=== PATIENT | female | born 1950 | race African-American/Black ===

== ENCOUNTER 2021-01-17 08:18 | Inpatient (IN) | payer MEDICARE, OTHER ==
[2021-01-17] MEDS ORDERED: MECLIZINE 25 MG TAB PO STA (08:24)
--- NOTE | 2021-01-17 08:28 | ED ---
General Adult HPI - General Chief complaint: Dizziness Stated complaint: Weakness Time Seen by Provider: 01/17/21 08:20 Source: patient, RN notes reviewed, old records reviewed Mode of arrival: EMS Limitations: no limitations - History of Present Illness Initial comments: This is a 70-year-old female who presents emergency Department complaining of weakness. According to the patient she got up today and went went to walk and she was falling to the right and had to catch herself. Patient states she's noticed no focal deficit of any extremities overall she felt a little weaker. Patient states when she moves everything starts to spin. Patient denies headache patient denies near syncopal episode. Patient denies chest pain palpitations or cough. Patient denies any fever. Patient has any congestion recently. Patient denies any loss of taste and smell. Patient denies any vomiting or diarrhea but she does states with the spinning sensation she feels nauseated. - Related Data Home Medications Medication Instructions Recorded Confirmed Aspirin EC [Ecotrin Low Dose] 81 mg PO DAILY PRN 01/17/21 01/17/21 Cholecalciferol [Vitamin D3 (25 25 mcg PO DAILY 01/17/21 01/17/21 Mcg = 1000 Iu)] Famotidine 20 mg PO BID 01/17/21 01/17/21 Multivitamins, Thera [Multivitamin 1 tab PO DAILY 01/17/21 01/17/21 (formulary)] clonazePAM [KlonoPIN] 0.5 mg PO DAILY PRN 01/17/21 01/17/21 lisinopriL 40 mg PO DAILY 01/17/21 01/17/21 oxyCODONE-APAP 5-325MG [Percocet 1 tab PO QID PRN 01/17/21 01/17/21 5-325 mg] Allergies Allergy/AdvReac Type Severity Reaction Status Date / Time No Known Allergies Allergy Verified 01/17/21 09:25 Review of Systems ROS Statement: Those systems with pertinent positive or pertinent negative responses have been documented in the HPI. ROS Other: All systems not noted in ROS Statement are negative. Past Medical History Past Medical History: Hypertension History of Any Multi-Drug Resistant Organisms: None Reported Past Surgical History: Hysterectomy Past Psychological History: No Psychological Hx Reported Smoking Status: Former smoker Past Alcohol Use History: None Reported Past Drug Use History: None Reported General Exam - General Exam Comments Initial Comments: GENERAL: Patient is well-developed and well-nourished. Patient is nontoxic and well- hydrated and is in mild distress. ENT: Neck is soft and supple. No significant lymphadenopathy is noted. Oropharynx is clear. Moist mucous membranes. Neck has full range of motion without eliciting any pain. EYES: The sclera were anicteric and conjunctiva were pink and moist. Extraocular movements were intact and pupils were equal round and reactive to light. Eyelids were unremarkable. PULMONARY: Unlabored respirations. Good breath sounds bilaterally. No audible rales rhonchi or wheezing was noted. CARDIOVASCULAR: There is a regular rate and rhythm without any murmurs gallops or rubs. ABDOMEN: Soft and nontender with normal bowel sounds. SKIN: Skin is clear with no lesions or rashes and otherwise unremarkable. NEUROLOGIC: Patient is alert and oriented x3. Cranial nerves II through XII are grossly intact. Motor and sensory are also intact. Normal speech, volume and content. Symmetrical smile. Cerebellar testing finger to nose is normal bilaterally. Patient moved her head around and became much more dizzy and moving her from the gurney to the stretcher patient was extremely dizzy. MUSCULOSKELETAL: Normal extremities with adequate strength and full range of motion. No lower extremity swelling or edema. No calf tenderness. LYMPHATICS: No significant lymphadenopathy is noted PSYCHIATRIC: Normal psychiatric evaluation. Limitations: no limitations Course Vital Signs 01/17/21 01/17/21 08:19 09:43 Temperature 98.2 F Pulse Rate 55 L 54 L Respiratory 18 18 Rate Blood Pressure 189/85 161/74 O2 Sat by Pulse 100 100 Oximetry Medical Decision Making - Medical Decision Making EKG shows sinus bradycardia 56 bpm [place] interval is 128 QRS is 90 QT interval 414 QTC is 399. Patient's EKG shows no ST segment elevation or depression. CT of the brain shows no acute abnormality. Patient was unable to get out of bed because she felt she was falling to her right. Patient did receive Antivert but it did not appear to help her. I spoke with some physicians agreed to admit the patient admitted the patient I consult the neurology continue Antivert. - Lab Data Result diagrams: 01/17/21 08:36 01/17/21 08:36 Lab Results 01/17/21 01/17/21 01/17/21 Range/Units 08:36 08:36 08:36 WBC 6.6 (3.8-10.6) k/uL RBC 5.19 (3.80-5.40) m/uL Hgb 12.2 (11.4-16.0) gm/dL Hct 38.9 (34.0-46.0) % MCV 74.9 L (80.0-100.0) fL MCH 23.6 L (25.0-35.0) pg MCHC 31.5 (31.0-37.0) g/dL RDW 15.1 (11.5-15.5) % Plt Count 266 (150-450) k/uL MPV 8.6 Neutrophils % 71 % Lymphocytes % 20 % Monocytes % 5 % Eosinophils % 2 % Basophils % 0 % Neutrophils # 4.7 (1.3-7.7) k/uL Lymphocytes # 1.4 (1.0-4.8) k/uL Monocytes # 0.3 (0-1.0) k/uL Eosinophils # 0.1 (0-0.7) k/uL Basophils # 0.0 (0-0.2) k/uL Microcytosis Slight PT 9.7 (9.0-12.0) sec INR 0.9 (<1.2) APTT 23.6 (22.0-30.0) sec Sodium 139 (137-145) mmol/L Potassium 3.9 (3.5-5.1) mmol/L Chloride 109 H (98-107) mmol/L Carbon Dioxide 22 (22-30) mmol/L Anion Gap 8 mmol/L BUN 23 H (7-17) mg/dL Creatinine 1.04 (0.52-1.04) mg/dL Est GFR (CKD-EPI)AfAm 64 (>60 ml/min/1.73 sqM) Est GFR (CKD-EPI)NonAf 55 (>60 ml/min/1.73 sqM) Glucose 115 H (74-99) mg/dL Calcium 10.5 H (8.4-10.2) mg/dL Magnesium 2.0 (1.6-2.3) mg/dL Total Bilirubin 0.7 (0.2-1.3) mg/dL AST 24 (14-36) U/L ALT 21 (4-34) U/L Alkaline Phosphatase 102 (38-126) U/L Troponin I (0.000-0.034) ng/mL Total Protein 6.7 (6.3-8.2) g/dL Albumin 3.5 (3.5-5.0) g/dL Urine Color Urine Appearance (Clear) Urine pH (5.0-8.0) Ur Specific [place] (1.001-1.035) Urine Protein (Negative) Urine Glucose (UA) (Negative) Urine Ketones (Negative) Urine Blood (Negative) Urine Nitrite (Negative) Urine Bilirubin (Negative) Urine Urobilinogen (<2.0) mg/dL Ur Leukocyte Esterase (Negative) 01/17/21 01/17/21 Range/Units 08:36 08:36 WBC (3.8-10.6) k/uL RBC (3.80-5.40) m/uL Hgb (11.4-16.0) gm/dL Hct (34.0-46.0) % MCV (80.0-100.0) fL MCH (25.0-35.0) pg MCHC (31.0-37.0) g/dL RDW (11.5-15.5) % Plt Count (150-450) k/uL MPV Neutrophils % % Lymphocytes % % Monocytes % % Eosinophils % % Basophils % % Neutrophils # (1.3-7.7) k/uL Lymphocytes # (1.0-4.8) k/uL Monocytes # (0-1.0) k/uL Eosinophils # (0-0.7) k/uL Basophils # (0-0.2) k/uL Microcytosis PT (9.0-12.0) sec INR (<1.2) APTT (22.0-30.0) sec Sodium (137-145) mmol/L Potassium (3.5-5.1) mmol/L Chloride (98-107) mmol/L Carbon Dioxide (22-30) mmol/L Anion Gap mmol/L BUN (7-17) mg/dL Creatinine (0.52-1.04) mg/dL Est GFR (CKD-EPI)AfAm (>60 ml/min/1.73 sqM) Est GFR (CKD-EPI)NonAf (>60 ml/min/1.73 sqM) Glucose (74-99) mg/dL Calcium (8.4-10.2) mg/dL Magnesium (1.6-2.3) mg/dL Total Bilirubin (0.2-1.3) mg/dL AST (14-36) U/L ALT (4-34) U/L Alkaline Phosphatase (38-126) U/L Troponin I <0.012 (0.000-0.034) ng/mL Total Protein (6.3-8.2) g/dL Albumin (3.5-5.0) g/dL Urine Color Light Yellow Urine Appearance Clear (Clear) Urine pH 5.5 (5.0-8.0) Ur Specific [place] 1.013 (1.001-1.035) Urine Protein Trace H (Negative) Urine Glucose (UA) Negative (Negative) Urine Ketones Negative (Negative) Urine Blood Negative (Negative) Urine Nitrite Negative (Negative) Urine Bilirubin Negative (Negative) Urine Urobilinogen <2.0 (<2.0) mg/dL Ur Leukocyte Esterase Negative (Negative) Disposition Clinical Impression: Vertigo Disposition: ADMITTED IP TO THIS HOSP Referrals: Nonstaff,Physician [Primary Care Provider] - 1-2 days Time of Disposition: 10:57
[2021-01-17 09:15] LABS: INR 0.9 (<1.2); Partial Thromboplastin Time 23.6 sec (22.0-30.0); Prothrombin Time 9.7 sec (9.0-12.0)
[2021-01-17 09:25] LABS: Albumin 3.5 g/dL (3.5-5.0); Calcium 10.5 mg/dL (8.4-10.2); Potassium 3.9 mmol/L (3.5-5.1); Total Bilirubin 0.7 mg/dL (0.2-1.3); Total Protein 6.7 g/dL (6.3-8.2)
--- NOTE | 2021-01-17 09:26 | XR ---
EXAMINATION TYPE: XR chest 2V DATE OF EXAM: 01/17/2021 COMPARISON: Chest x-ray October 17, 2015 HISTORY: Chest pain. TECHNIQUE: Frontal and lateral views of the chest are obtained. FINDINGS: There is mild chronic parenchymal change without suspicious focal air space opacity, pleur al effusion, or pneumothorax seen. Elevation and eventration left hemidiaphragm is noted. The cardiac silhouette size is stable and enlarged. The osseous structures are intact. IMPRESSION: Chronic changes and cardiomegaly without acute pulmonary process.
--- NOTE | 2021-01-17 09:30 | CT ---
EXAMINATION TYPE: CT brain wo con DATE OF EXAM: 01/17/2021 HISTORY: weakness, dizziness CT DLP: 1135.4 mGycm. Automated Exposure Control for Dose Reduction was Utilized. TECHNIQUE: CT scan of the head is performed without contrast. COMPARISON: None. FINDINGS: There is no acute intracranial hemorrhage or midline shift identified. There is mild diff use ventricular and sulcal prominence consistent with diffuse age-related cerebral atrophy. There is mild low-attenuation in the periventricular white matter consistent with chronic small vessel ischem ic change. There is 2.2 cm mucous retention cyst or polyp in the posterior left maxillary sinus. Isaura casey of paranasal sinuses are clear. Globes are intact bilaterally. Slight prominence of the adenoid tonsils and the posterior nasal pharynx incidentally noted. IMPRESSION: No acute intracranial hemorrhage or midline shift. There is mild diffuse age-related ce rebral atrophy and chronic small vessel ischemic change noted.
[2021-01-17 09:45] LABS: Basophils % (A) 0 %; Eosinophils # (A) 0.1 k/uL (0-0.7); Eosinophils % (A) 2 %; HCT 38.9 % (34.0-46.0); HGB 12.2 gm/dL (11.4-16.0); Lymphocytes # (A) 1.4 k/uL (1.0-4.8); Lymphocytes % (A) 20 %; MCH 23.6 pg (25.0-35.0); MCHC 31.5 g/dL (31.0-37.0); MCV 74.9 fL (80.0-100.0); Mean Platelet Volume 8.6; Microcytosis Slight; Monocytes # (A) 0.3 k/uL (0-1.0); Monocytes % (A) 5 %; Neutrophils # (A) 4.7 k/uL (1.3-7.7); Neutrophils % (A) 71 %; Platelet Count 266 k/uL (150-450); RBC 5.19 m/uL (3.80-5.40); RDW 15.1 % (11.5-15.5); WBC 6.6 k/uL (3.8-10.6)
[2021-01-17 09:58] LABS: Appearance,Urine Clear (Clear); Bilirubin,Urine Negative (Negative); Blood,Urine Negative (Negative); Color,Urine Light Yellow; Glucose,Urine (UA) Negative (Negative); Ketones,Urine Negative (Negative); Leukocyte Esterase,Urine Negative (Negative); Nitrite,Urine Negative (Negative); PH, Urine 5.5 (5.0-8.0); Protein,Urine Trace (Negative); Specific Gravity,Urine 1.013 (1.001-1.035); Urobilinogen,Urine <2.0 mg/dL (<2.0)
[2021-01-17] MEDS ORDERED: ACETAMINOPHEN TAB 325 MG TAB PO STA (10:15)
[2021-01-17] MEDS ORDERED: SODIUM CHLORIDE 0.9% 1,000 ML IV ONE (10:57)
[2021-01-17] MEDS ORDERED: MECLIZINE 25 MG TAB PO PRN (10:58)
--- NOTE | 2021-01-17 13:24 | P.CNNES ---
History of Present Illness Consult date: 01/17/21 Requesting physician: Zaheer Reilly Reason for Consult: vertigo History of Present Illness: This is a 70-year-old woman with medical history of hemorrhagic stroke in 2013 (without any intervention) and uncontrolled hypertension, cervical and lumbar fusion who presented emergency department on 01/17/2021 generalized weakness and dizziness. She is accompanied with her daughter was at bedside. According to the patient she woke up at 3 PM and trying to get out of bed and she felt like her whole body is weak and she basically bounced back to bed and she is felt nauseous and been feeling dizzy and she feels the room is spinning around her. She said that that she was last normal at that 10 PM yesterday but today she just feels her whole body was weak and denies any focal weakness. She denies any ringing of the ears or hearing loss. Denies any vomiting. Feels her vision is blurry. Denies of any recent fever or sickness recently. Denies of any numbness. Patient stated she is not on any antiplatelets or anticoagulation. She feels like she is leaning towards the right side. Note patient stated that her blood pressure is uncontrolled at home and it's usually 180s over 90s. Patient denies of tobacco use, alcohol use or any illicit drug use. She said that regarding her hemorrhagic stroke in 2013 she said she was a hospitalized at [facility] over at [place]. She said that she had weakness over the right side at that time but she had to have therapy and that improved she had any intervention for the bleed and she could not tell me what was the cause but I assume possibly uncontrolled hypertension but not for sure. She denies of any trauma that caused the bleed to her knowledge. Some of the workup in the hospital consisted of: Initial vital signs was blood pressure 189/85, heart rate 55, respiratory of 18, temperature of 98.2 Fahrenheit and pulse ox of 100% at room air. White blood cell was 6.6 thousand. Sodium is 139, creatinine 1.04, calcium 7.5, magnesium 2.0. Urinalysis is negative for urinary tract infection. CT of the head is reported as no acute intracranial hemorrhage or midline shift. There is mild diffuse age-related cerebral atrophy and chronic small vessel ischemic change noted. I personally reviewed the CT of the head there is no acute or subacute ischemia or any intraparenchymal hemorrhage that was noticeable left. Review of Systems Review of system: The 12 point system was reviewed and apparent positive and negative per HPI. Past Medical History Past Medical History: Hypertension History of Any Multi-Drug Resistant Organisms: None Reported Past Surgical History: Hysterectomy Past Psychological History: No Psychological Hx Reported Smoking Status: Former smoker Past Alcohol Use History: None Reported Past Drug Use History: None Reported Medications and Allergies Home Medications Medication Instructions Recorded Confirmed Type Aspirin EC [Ecotrin Low Dose] 81 mg PO DAILY PRN 01/17/21 01/17/21 History Cholecalciferol [Vitamin D3 (25 25 mcg PO DAILY 01/17/21 01/17/21 History Mcg = 1000 Iu)] Famotidine 20 mg PO BID 01/17/21 01/17/21 History Multivitamins, Thera [Multivitamin 1 tab PO DAILY 01/17/21 01/17/21 History (formulary)] clonazePAM [KlonoPIN] 0.5 mg PO DAILY PRN 01/17/21 01/17/21 History lisinopriL 40 mg PO DAILY 01/17/21 01/17/21 History oxyCODONE-APAP 5-325MG [Percocet 1 tab PO QID PRN 01/17/21 01/17/21 History 5-325 mg] Allergies Allergy/AdvReac Type Severity Reaction Status Date / Time No Known Allergies Allergy Verified 01/17/21 09:25 Physical Examination - Vital Signs Vital Signs: Vital Signs Temp Pulse Resp BP Pulse Ox 01/17/21 09:43 54 L 18 161/74 100 01/17/21 08:19 98.2 F 55 L 18 189/85 100 Intake and Output 01/16/21 01/17/21 01/17/21 22:59 06:59 14:59 Other: Weight 89.358 kg GENERAL: The patient is lying in bed and is not in acute distress. CHEST: The heart rate is regular rate rhythm. No murmurs to auscultation. LUNG: Clear to auscultation bilaterally no wheezing noted throughout. Not labored breathing. ABDOMEN/GI: Bowel sounds present in all 4 quadrants. No tenderness to palpation throughout. NEUROLOGICAL: Higher mental function: The patient is awake, alert, oriented to self, place and time. Patient is following commands. No aphasia and no neglect. Cranial nerves: The pupils are round, equal and reactive to light and accommodation. Visual sánchez are full to confrontation throughout. Extraocular movement is intact no nystagmus is noted. Facial sensation is normal to touch throughout. The facial strength is normal throughout. Hearing is mildly decreased bilaterally to hand rub. Tongue is midline and moved [id number] without any difficulty. No dysarthria is noted. Shoulder shrug is normal bilaterally. Motor: Gait is deferred. The strength is left forearm extension is 4+ but was limited because of pain due to her IV line. Otherwise 5 over 5 throughout. Normal tone and bulk. Cerebellum: Normal finger to nose heel to flores bilaterally. Sensation: Sensation is normal to touch throughout. Reflexes (right/left): 2+ throughout except right patellar is 1+. Plantars are downgoing bilaterally. Results - Laboratory Findings CBC and BMP: 01/17/21 08:36 01/17/21 08:36 Abnormal Lab Findings: Abnormal Labs 01/17/21 01/17/21 01/17/21 08:36 08:36 08:36 MCV 74.9 L MCH 23.6 L Chloride 109 H BUN 23 H Glucose 115 H Calcium 10.5 H Urine Protein Trace H Assessment and Plan Assessment: Vertigo, nausea and generalized weakness; Rule out stroke vs peripheral causes Uncontrolled hypertension History of hemorrhagic stroke in 2013 without any intervention (patient could not give more details other than possibly over the right side of brain) History of hypertension and per patient the her blood pressure at home is usually 180/90 History of cervical fusion History of lumbar fusion Plan: Patient the was given meclizine 25 mg once in the ED then was started on 25 mg 1 tablet 3 times a day. I ordered MRI of the brain, CTA head and neck and 2-D echo. Also ordered the lipid panel, TSH level and HbA1c. Consulted the physical therapy and occupation therapy If the patient does have a stroke all start the patient on Lipitor and antiplatelet (patient agrees to hold off on any medication until stroke is confirmed). Every 4 hours neuro checks She was counseled on the better management of her hypertension at home. We'll defer the rest of the medical management to the primary team Plan was discussed with the patient and her daughter who was at bedside. Thank you for the consultation. Larry Hansen M.D. Neuro-hospitalist Time with Patient: Greater than 30
--- NOTE | 2021-01-17 13:47 | P.HPIM ---
History of Present Illness H&P Date: 01/17/21 Chief Complaint: dizziness 70-year-old woman with medical history of hemorrhagic stroke in 2014, uncontrolled hypertension, cervical and lumbar fusion who presented emergency department on 01/17/2021 with generalized weakness and dizziness. According to the patient she woke up at 3 PM and trying to get out of bed and she felt like her whole body is weak, and had extreme dizziness and vertigo sensation, felt like everything was spinning around her. Patient denies any focal weakness or numbness. She denies any ringing of the ears or hearing loss. Denies any vomiting. Had blurred and double vision in both eyes. Denies of any recent fever or sickness recently. In the emergency department initial vital signs was blood pressure 189/85, heart rate 55, respiratory of 18, temperature of 98.2 Fahrenheit and pulse ox of 100% at room air. Labs all look okay. Urinalysis is negative for urinary tract infection. CT of the head is reported as no acute intracranial hemorrhage or midline shift. Review of Systems Complete review of system performed, pertinent positives as per HPI, otherwise negative Past Medical History Past Medical History: Hypertension History of Any Multi-Drug Resistant Organisms: None Reported Past Surgical History: Hysterectomy Past Psychological History: No Psychological Hx Reported Smoking Status: Former smoker Past Alcohol Use History: None Reported Past Drug Use History: None Reported Medications and Allergies Home Medications Medication Instructions Recorded Confirmed Type Aspirin EC [Ecotrin Low Dose] 81 mg PO DAILY PRN 01/17/21 01/17/21 History Cholecalciferol [Vitamin D3 (25 25 mcg PO DAILY 01/17/21 01/17/21 History Mcg = 1000 Iu)] Famotidine 20 mg PO BID 01/17/21 01/17/21 History Multivitamins, Thera [Multivitamin 1 tab PO DAILY 01/17/21 01/17/21 History (formulary)] clonazePAM [KlonoPIN] 0.5 mg PO DAILY PRN 01/17/21 01/17/21 History lisinopriL 40 mg PO DAILY 01/17/21 01/17/21 History oxyCODONE-APAP 5-325MG [Percocet 1 tab PO QID PRN 01/17/21 01/17/21 History 5-325 mg] Allergies Allergy/AdvReac Type Severity Reaction Status Date / Time No Known Allergies Allergy Verified 01/17/21 09:25 Physical Exam Vitals: Vital Signs Temp Pulse Resp BP Pulse Ox 01/17/21 09:43 54 L 18 161/74 100 01/17/21 08:19 98.2 F 55 L 18 189/85 100 Intake and Output 01/16/21 01/17/21 01/17/21 22:59 06:59 14:59 Other: Weight 89.358 kg Constitutional: No acute distress, conversant, pleasant Eyes:Anicteric sclerae, moist conjunctiva, no lid-lag, PERRLA, ENMT: Oropharynx clear, no erythema, exudates Neck: Supple, FROM, no masses, or JVD, No carotid bruits, No thyromegaly Lungs: Clear to auscultation, Clear to percussion, Normal respiratory effort, no accessory muscle use Cardiovascular: Heart regular in rate and rhythm, No murmurs, gallops, or rubs, No peripheral edema Abdominal: Soft, Nontender, no guarding, rebound or rigidity, Normoactive bowel sounds, No hepatomegaly, No splenomegaly, No palpable mass Skin: Normal temperature, tone, texture, turgor, no induration, No subcutaneous nodules, No rash, lesions, No ulcers Extremities: No digital cyanosis, No clubbing, Pedal pulses intact and symmetrical, Radial pulses intact and symmetrical, No calf tenderness Psychiatric: Alert and oriented to person, place and time, appropriate affect, intact judgement Neuro: Muscles Strength 5/5 in all 4 extremities, Sensation to light touch grossly present throughout, Cranial nerves II-XII grossly intact, no focal sensory deficits Results CBC & Chem 7: 01/17/21 08:36 01/17/21 08:36 Labs: Abnormal Lab Results - Last 24 Hours (Table) 01/17/21 01/17/21 01/17/21 Range/Units 08:36 08:36 08:36 MCV 74.9 L (80.0-100.0) fL MCH 23.6 L (25.0-35.0) pg Chloride 109 H (98-107) mmol/L BUN 23 H (7-17) mg/dL Glucose 115 H (74-99) mg/dL Calcium 10.5 H (8.4-10.2) mg/dL Urine Protein Trace H (Negative) Assessment and Plan Plan: Acute vertigo, rule out CVA Seen by neurology, stroke workup with MRI brain, 2-D echo, CTA head and neck ordered. Send A1c, lipid profile PT and OT Monitor on telemetry Uncontrolled hypertension permissive hypertension for now until she is ruled out Chronic back and neck pain She is status post cervical and lumbar fusion. Admit to inpatient, expected length of stay >2 midnights
[2021-01-17] MEDS ORDERED: NALOXONE 0.4 MG/ML 1 ML VIAL IV PRN (14:05)
--- NOTE | 2021-01-17 15:27 | CT ---
EXAMINATION TYPE: CT angio head neck DATE OF EXAM: 01/17/2021 HISTORY: cva acute. Weakness and dizziness. COMPARISON: None. CT DLP: 522.2 mGycm. Automated Exposure Control for Dose Reduction was Utilized. TECHNIQUE: CTA scan of the head and neck are performed with IV Contrast, patient injected with 65cc mL of Isovue 370, axial images are obtained, coronal and sagittal reformatted images are reviewed. 3D reconstructed images are created on an independent workstation and reviewed. FINDINGS: Carotid/Vascular Structures: There is bovine type aortic arch. No significant plaque or stenosis in t he arch or great vessels. No significant plaque or stenosis in the common or internal carotid arterie s bilaterally including at the level of the bilateral carotid bulbs. Patent external carotid arteries bilaterally without significant plaque or stenosis. Patent codominant vertebral arteries to basilar junction. No significant focal stenosis or aneurysm i n the posterior circulation. There are hypoplastic bilateral posterior communicating arteries. Small caliber but patent anterior communicating artery. No significant focal stenosis or aneurysm in the anterior circulation. Other: Incidental extra-axial 2.3 x 1.0 cm enhancing mass right frontal lobe axial image 29 consisten t with meningioma less well-seen on noncontrast CT gas is isodense. There is second 1.1 cm enhancing meningioma axial image 36 in the anterior left frontal lobe. There is 2.2 cm mucous retention cyst or polyp in the left maxillary sinus posterior aspect. Heterogeneous enlarged thyroid with left-sided substernal extension consistent with goiter. IMPRESSION: No significant stenosis in common or internal carotid arteries. No significant stenosis or aneurysm at the level of the [place]. NASCET criteria was used in interpretation of this exam?
--- NOTE | 2021-01-17 17:40 | ECHOF ---
Referral Reason:stroke MEASUREMENTS -------- HEIGHT: 157.5 cm WEIGHT: 77.1 kg BP: RVIDd: 2.8 cm (< 3.3) IVSd: 1.4 cm (0.6 - 1.1) LVIDd: 4.7 cm (3.9 - 5.3) LVPWd: 1.5 cm (0.6 - 1.1) IVSs: 1.6 cm LVIDs: 3.4 cm LVPWs: 1.5 cm LAESV Index (A-L): 34.92 ml/m Ao Diam: 3.4 cm (2.0 - 3.7) AV Cusp: 2.4 cm (1.5 - 2.6) LA Diam: 3.4 cm (2.7 - 3.8) MV EXCURSION: 15.965 mm (> 18.000) MV EF SLOPE: 48 mm/s (70 - 150) EPSS: 0.8 cm MV E Slade: 0.41 m/s MV DecT: 206 ms MV A [place]: 0.88 m/s MV E/A Ratio: 0.46 AR PHT: 892 ms RAP: 5.00 mmHg RVSP: 23.88 mmHg FINDINGS -------- Sinus rhythm. This was a technically adequate study. The left ventricular size is normal. There is moderate concentric left ventricular hypertrophy. O verall left ventricular systolic function is normal with, an EF between 55 - 60 %. The right ventricle is normal in size. LA is moderately dilated 34-39 ml/m2 The right atrial size is normal. There is mild aortic valve sclerosis. There is mild aortic regurgitation. The mitral valve is normal. Mild mitral regurgitation is present. The tricuspid valve appears structurally normal. Mild tricuspid regurgitation present. Right vent ricular systolic pressure is normal at < 35 mmHg. There is no pulmonic regurgitation present. The aortic root size is normal. There is a small, generalized pericardial effusion present. CONCLUSIONS -------- 1. There is moderate concentric left ventricular hypertrophy. 2. Overall left ventricular systolic function is normal with, an EF between 55 - 60 %. 3. LA is moderately dilated 34-39 ml/m2 4. There is mild aortic valve sclerosis. 5. There is mild aortic regurgitation. 6. Mild mitral regurgitation is present. 7. Mild tricuspid regurgitation present. 8. There is a small, generalized pericardial effusion present. AUTOMOTIVE QUALITY MANAGER: Veronica Armas RDCS
[2021-01-17 19:37] LABS: Chol/HDL Ratio 2.97 Ratio; LDL Cholesterol,Calculated 108.5 mg/dL (0.0-131.0); VLDL Calculation 12.32 mg/dL (5.00-40.00)
[2021-01-17] MEDS ORDERED: clonazePAM 0.5 MG TAB PO PRN (23:38)
[2021-01-17] MEDS ORDERED: ASPIRIN 81 MG PO PRN (23:39)
[2021-01-18] MEDS ORDERED: ALPRAZolam 0.5 MG TAB PO STA ×2 (08:27→10:32)
[2021-01-18] MEDS: Acetaminophen-Codeine 300-30mg TAB PO PRN ×2 (08:56→16:27)
[2021-01-18] MEDS ORDERED: FAMOTIDINE 20 MG TAB PO SCH (09:00)
[2021-01-18 10:39] LABS: Basophils # (A) 0.03 X 10*3/uL (0.00-0.10); Basophils % (A) 0.5 %; Eosinophils # (A) 0.16 X 10*3/uL (0.04-0.35); Eosinophils % (A) 2.5 %; HCT 35.6 % (37.2-46.3); HGB 10.8 g/dL (12.0-15.0); Lymphocytes % (A) 23.6 %; MCHC 30.3 g/dL (32.0-37.0); MCV 75.9 fL (80.0-97.0); Mean Platelet Volume 11.2 fL (9.5-12.2); Monocytes # (A) 0.52 X 10*3/uL (0.20-1.00); Monocytes % (A) 8.2 %; Neutrophils # (A) 4.13 X 10*3/uL (1.80-7.70); Neutrophils % (A) 64.9 %; Platelet Count 284 X 10*3/uL (140-440); RBC 4.69 X 10*6/uL (4.10-5.20); RDW 15.9 % (11.5-14.5); WBC 6.36 X 10*3/uL (4.50-10.00)
[2021-01-18 11:19] LABS: African American GFR (CKD) 59.3 (60.0-200.0); Albumin 3.5 g/dL (3.8-4.9); Albumin/Globulin Ratio 1.57 (1.60-3.17); BUN/Creat Ratio 17.36 Ratio (12.00-20.00); Blood Urea Nitrogen 19.1 mg/dL (9.0-27.0); Carbon Dioxide 23.8 mmol/L (21.6-31.8); Globulin 2.2 g/dL (1.6-3.3); Non-African American GFR(CKD) 51.2 (60.0-200.0); Phosphorus 3.2 mg/dL (2.4-5.1); Potassium 4.4 mmol/L (3.5-5.5); Total Bilirubin 0.3 mg/dL (0.30-1.20); Total Protein 5.8 g/dL (6.2-8.2)
--- NOTE | 2021-01-18 12:11 | P.PN ---
Subjective Progress Note Date: 01/18/21 The patient is seen at bedside and feels her dizziness is improving but is not back to baseline. Denies of any new neurological problems. Objective - Vital Signs Vital signs: Vital Signs Temp 98.2 F 01/18/21 07:00 Pulse 60 01/18/21 08:00 Resp 14 01/18/21 08:00 BP 164/81 01/18/21 07:00 Pulse Ox 96 01/18/21 07:00 Intake & Output 01/17/21 01/18/21 01/18/21 18:59 06:59 18:59 Intake Total 118 Balance 118 Weight 89.358 kg Intake: Oral 118 Other: Voiding Method Bedpan Bedpan # Voids 1 - Exam GENERAL: The patient is lying in bed and is not in acute distress. NEUROLOGICAL: Higher mental function: The patient is awake, alert, oriented to self, place and time. Patient is following commands. No aphasia and no neglect. Cranial nerves: The pupils are round, equal and reactive to light and accommodation. Visual sánchez are full to confrontation throughout. Extraocular movement is intact no nystagmus is noted. Facial sensation is normal to touch throughout. The facial strength is normal throughout. Hearing is mildly decreased bilaterally to hand rub. Tongue is midline and moved [id number] without any difficulty. No dysarthria is noted. Shoulder shrug is normal bilaterally. Motor: Gait is deferred. The strength is left forearm extension is 4+ but was limited because of pain due to her IV line. Otherwise 5 over 5 throughout. Normal tone and bulk. Cerebellum: Normal finger to nose heel to flores bilaterally. Sensation: Sensation is normal to touch throughout. Reflexes (right/left): 2+ throughout except right patellar is 1+. Plantars are downgoing bilaterally. WORK-UP: Urinalysis is negative for urinary tract infection. CT of the head is reported as no acute intracranial hemorrhage or midline shift. There is mild diffuse age-related cerebral atrophy and chronic small vessel ischemic change noted. I personally reviewed the CT of the head there is no acute or subacute ischemia or any intraparenchymal hemorrhage that was noticeable left. CT angiography of the head and neck is reported as negative. 2-D echo was reported as ejection fraction of 55-60%. Moderate concentric left ventricle hypertrophy. Left atrium is moderately dilated. Panel is triglyceride of 61, cholesterol 182, LDLs 108 and HDL of 61 TSH is 1.58. Hemoglobin A1c 6.2. - Labs CBC & Chem 7: 01/18/21 07:54 01/18/21 07:54 Labs: Abnormal Lab Results - Last 24 Hours (Table) 01/17/21 01/17/21 01/18/21 Range/Units 08:36 08:36 07:54 Hgb 10.8 L (12.0-15.0) g/dL Hct 35.6 L (37.2-46.3) % MCV 75.9 L (80.0-97.0) fL MCH 23.0 L (27.0-32.0) pg MCHC 30.3 L (32.0-37.0) g/dL RDW 15.9 H (11.5-14.5) % Est GFR (CKD-EPI)AfAm (60.0-200.0) Est GFR (CKD-EPI)NonAf (60.0-200.0) Hemoglobin A1c 6.2 H (4.0-6.0) % Total Protein (6.2-8.2) g/dL Albumin (3.8-4.9) g/dL Albumin/Globulin Ratio (1.60-3.17) g/dL HDL Cholesterol 61.20 H (40.00-60.00) mg/dL 01/18/21 Range/Units 07:54 Hgb (12.0-15.0) g/dL Hct (37.2-46.3) % MCV (80.0-97.0) fL MCH (27.0-32.0) pg MCHC (32.0-37.0) g/dL RDW (11.5-14.5) % Est GFR (CKD-EPI)AfAm 59.3 L (60.0-200.0) Est GFR (CKD-EPI)NonAf 51.2 L (60.0-200.0) Hemoglobin A1c (4.0-6.0) % Total Protein 5.8 L (6.2-8.2) g/dL Albumin 3.5 L (3.8-4.9) g/dL Albumin/Globulin Ratio 1.57 L (1.60-3.17) g/dL HDL Cholesterol (40.00-60.00) mg/dL Assessment and Plan Assessment: Vertigo, nausea and generalized weakness; Rule out stroke vs peripheral causes Uncontrolled hypertension History of hemorrhagic stroke in 2013 without any intervention (patient could not give more details other than possibly over the right side of brain) History of hypertension and per patient the her blood pressure at home is usually 180/90 History of cervical fusion History of lumbar fusion Plan: Patient the was given meclizine 25 mg once in the ED then was started on 25 mg 1 tablet 3 times a day. Pending MRI Brain. Consulted the physical therapy and occupation therapy If the patient does have a stroke all start the patient on Lipitor and antiplatelet (patient agrees to hold off on any medication until stroke is confirmed). Every 4 hours neuro checks She was counseled on the better management of her hypertension at home. We'll defer the rest of the medical management to the primary team Plan was discussed with the patient. If MRI Brain is negative for acute or subacute stroke then patient is clear from neurological perspective. Consider following-up with ENT if patient continues to have vestibular symptoms as outpatient. Larry Hansen M.D. Neuro-hospitalist Time with Patient: Less than 30
--- NOTE | 2021-01-18 12:58 | P.PN ---
Subjective Progress Note Date: 01/18/21 Principal diagnosis: Vertigo Patient is feeling better today in terms of the vertigo but she had a bad headache all last night and this morning. No new weakness or numbness. Objective - Vital Signs Vital signs: Vital Signs Temp 98.2 F 01/18/21 07:00 Pulse 60 01/18/21 08:00 Resp 14 01/18/21 08:00 BP 164/81 01/18/21 07:00 Pulse Ox 96 01/18/21 07:00 Intake & Output 01/17/21 01/18/21 01/18/21 18:59 06:59 18:59 Intake Total 118 Balance 118 Weight 89.358 kg Intake: Oral 118 Other: Voiding Method Bedpan Bedpan # Voids 1 - Exam Constitutional: No acute distress, conversant, pleasant Eyes:Anicteric sclerae, moist conjunctiva, no lid-lag, PERRLA, ENMT: Oropharynx clear, no erythema, exudates Neck: Supple, FROM, no masses, or JVD, No carotid bruits, No thyromegaly Lungs: Clear to auscultation, Clear to percussion, Normal respiratory effort, no accessory muscle use Cardiovascular: Heart regular in rate and rhythm, No murmurs, gallops, or rubs, No peripheral edema Abdominal: Soft, Nontender, no guarding, rebound or rigidity, Normoactive bowel sounds, No hepatomegaly, No splenomegaly, No palpable mass Skin: Normal temperature, tone, texture, turgor, no induration, No subcutaneous nodules, No rash, lesions, No ulcers Extremities: No digital cyanosis, No clubbing, Pedal pulses intact and symmetrical, Radial pulses intact and symmetrical, No calf tenderness Psychiatric: Alert and oriented to person, place and time, appropriate affect, intact judgement Neuro: Muscles Strength 5/5 in all 4 extremities, Sensation to light touch grossly present throughout, Cranial nerves II-XII grossly intact, no focal sensory deficits - Labs CBC & Chem 7: 01/18/21 07:54 01/18/21 07:54 Labs: Abnormal Lab Results - Last 24 Hours (Table) 01/17/21 01/17/21 01/18/21 Range/Units 08:36 08:36 07:54 Hgb 10.8 L (12.0-15.0) g/dL Hct 35.6 L (37.2-46.3) % MCV 75.9 L (80.0-97.0) fL MCH 23.0 L (27.0-32.0) pg MCHC 30.3 L (32.0-37.0) g/dL RDW 15.9 H (11.5-14.5) % Est GFR (CKD-EPI)AfAm (60.0-200.0) Est GFR (CKD-EPI)NonAf (60.0-200.0) Hemoglobin A1c 6.2 H (4.0-6.0) % Total Protein (6.2-8.2) g/dL Albumin (3.8-4.9) g/dL Albumin/Globulin Ratio (1.60-3.17) g/dL HDL Cholesterol 61.20 H (40.00-60.00) mg/dL 01/18/21 Range/Units 07:54 Hgb (12.0-15.0) g/dL Hct (37.2-46.3) % MCV (80.0-97.0) fL MCH (27.0-32.0) pg MCHC (32.0-37.0) g/dL RDW (11.5-14.5) % Est GFR (CKD-EPI)AfAm 59.3 L (60.0-200.0) Est GFR (CKD-EPI)NonAf 51.2 L (60.0-200.0) Hemoglobin A1c (4.0-6.0) % Total Protein 5.8 L (6.2-8.2) g/dL Albumin 3.5 L (3.8-4.9) g/dL Albumin/Globulin Ratio 1.57 L (1.60-3.17) g/dL HDL Cholesterol (40.00-60.00) mg/dL Assessment and Plan Plan: Acute vertigo, rule out CVA Seen by neurology, stroke workup with MRI brain, 2-D echo, CTA head and neck ordered. 2 d echo and CTA head and neck ok, waiting for MRI brain. Lipid sustainability manager reviewed. PT and OT Monitor on telemetry Prediabetes Her A1c is 6.2 Start metformin 500mg bid. Uncontrolled hypertension Restart lisinopril. Chronic back and neck pain She is status post cervical and lumbar fusion. Anticiptated discharge: 1-2 days. Dispo: Likely home
[2021-01-18] MEDS: lisinopriL 20 MG TAB PO SCH (14:01)
--- NOTE | 2021-01-18 14:23 | MR ---
EXAMINATION TYPE: MR brain wo con DATE OF EXAM: 01/18/2021 COMPARISON: CT brain from yesterday HISTORY: Dizziness, nausea, rule out stroke TECHNIQUE: Multiplanar, multisequence imaging of the brain and brainstem is performed without IV cont rast. FINDINGS: Diffusion weighted images demonstrate no evidence of a recent infarct or other diffusion abnormality. There is mild ventricular and sulcal prominence. Few small scattered foci of T2 hyperintensity throug hout the white matter bilaterally. Redemonstration of 2.3 x 1.3 cm extra-axial right frontal mass axi al image 19 and smaller 1.2 cm high more midline left frontal extra-axial mass axial image 23. Slight T1 hypointensity and T2 hyperintensity consistent with small meningiomas. Midline structures redemonstrate empty sella morphology. The craniocervical junction appears within normal limits. Normal vascular flow voids are present. There is persistent 2.3 cm mucous retention [address] or polyp in the posterior left maxillary sinus. No suspicious opacification of the mastoid air frank ls. IMPRESSION: No MRI evidence for recent infarct. Mild age-related cerebral atrophy and chronic small v essel ischemic changes redemonstrated. There are 2 small meningiomas again seen. Chronic left maxilla ry sinus disease.
[2021-01-19] MEDS: FAMOTIDINE 20 MG TAB PO SCH (08:15)
[2021-01-19] MEDS: lisinopriL 20 MG TAB PO SCH (08:15)
[2021-01-19] MEDS: hydrALAZINE HCL 25 MG TAB PO SCH ×2 (09:58→20:22)
[2021-01-19] MEDS ORDERED: ONDANSETRON 4 MG/2 ML VIAL IVP PRN (10:31)
[2021-01-19] MEDS ORDERED: SENNOSIDES 8.6 MG TAB PO PRN (10:33)
--- NOTE | 2021-01-19 10:43 | P.PN ---
Subjective Progress Note Date: 01/19/21 Principal diagnosis: Dizziness Patient seen and examined at bedside. She denies chest pain, shortness of breath, fever, or chills. Patient states that her dizziness is still present and she does get nauseated. However, since admitted to the hospital dizziness has improved. MRI of the brain was reviewed and there is no evidence for recent infarct. Mild age-related cerebral atrophy and chronic small vessel ischemic changes demonstrated. There are 2 small meningiomas again seen. Chronic left maxillary sinus disease. Objective - Vital Signs Vital signs: Vital Signs Temp 97.5 F L 01/19/21 07:00 Pulse 53 L 01/19/21 08:00 Resp 20 01/19/21 08:00 BP 179/82 01/19/21 07:00 Pulse Ox 97 01/19/21 07:00 Intake & Output 01/18/21 01/19/21 01/19/21 18:59 06:59 18:59 Intake Total 798 Balance 798 Intake: Oral 798 Other: Voiding Method Bedpan Bedpan Bedside Commode Bedpan # Voids 4 3 - Exam General: [non toxic], [no distress], [appears at stated age] Derm: [warm], [dry] Head: [atraumatic], [normocephalic], [symmetric] Eyes: [EOMI], [no lid lag], [anicteric sclera] Mouth: [no lip lesion], [mucus membranes moist] Cardiovascular: [Sinus bradycardia], [grade II murmur], [positive posterior tibial pulse bilateral], Lungs: [CTA bilateral], [no rhonchi, no rales] , [no accessory muscle use] Abdominal: [soft], [ nontender to palpation], [no guarding], [no appreciable organomegaly] Ext: [no gross muscle atrophy], [no edema], [no contractures] Neuro: [ CN II-XI grossly intact], [no focal neuro deficits] Psych: [Alert], [oriented], [appropriate affect] - Labs CBC & Chem 7: 01/18/21 07:54 01/18/21 07:54 Labs: Abnormal Lab Results - Last 24 Hours (Table) 01/18/21 01/18/21 Range/Units 07:54 07:54 Hgb 10.8 L (12.0-15.0) g/dL Hct 35.6 L (37.2-46.3) % MCV 75.9 L (80.0-97.0) fL MCH 23.0 L (27.0-32.0) pg MCHC 30.3 L (32.0-37.0) g/dL RDW 15.9 H (11.5-14.5) % Est GFR (CKD-EPI)AfAm 59.3 L (60.0-200.0) Est GFR (CKD-EPI)NonAf 51.2 L (60.0-200.0) Total Protein 5.8 L (6.2-8.2) g/dL Albumin 3.5 L (3.8-4.9) g/dL Albumin/Globulin Ratio 1.57 L (1.60-3.17) g/dL Assessment and Plan Assessment: 1. Dizziness likely due to vertigo secondary to chronic sinusitis Antibiotics and steroids will be provided today secondary to evidence of chronic sinusitis on MRI MRI reviewed and was negative for acute CVA Continue meclizine Neurology recommendations appreciated 2. Nausea secondary to #1 Zofran when necessary 3. Hyper tension uncontrolled Add hydralazine Monitor vitals every 4 hours 4. Systolic murmur with dizziness Check echocardiogram 5. Constipation Colace daily Senna when necessary 6. GI DVT prophylaxis 7. A.m. labs Time with Patient: Greater than 30
[2021-01-19] MEDS: AMOXIC-POT CLAV 875-125MG 1 EACH TAB PO SCH ×2 (13:15→20:22)
[2021-01-19] MEDS: DOCUSATE 100 MG CAP PO SCH (13:15)
[2021-01-19] MEDS: predniSONE 20 MG TAB PO SCH (13:15)
[2021-01-20] MEDS: DOCUSATE 100 MG CAP PO SCH (08:25)
[2021-01-20] MEDS: predniSONE 20 MG TAB PO SCH (08:25)
[2021-01-20] MEDS: AMOXIC-POT CLAV 875-125MG 1 EACH TAB PO SCH ×2 (08:25→19:35)
[2021-01-20] MEDS: lisinopriL 20 MG TAB PO SCH (08:26)
[2021-01-20] MEDS: FAMOTIDINE 20 MG TAB PO SCH (08:26)
[2021-01-20] MEDS: Acetaminophen-Codeine 300-30mg TAB PO PRN (08:26)
[2021-01-20] MEDS: hydrALAZINE HCL 50 MG TAB PO SCH ×3 (08:27→19:35)
[2021-01-20 09:01] LABS: Basophils # (A) 0.03 X 10*3/uL (0.00-0.10); Basophils % (A) 0.3 %; Eosinophils # (A) 0.01 X 10*3/uL (0.04-0.35); Eosinophils % (A) 0.1 %; HCT 38.9 % (37.2-46.3); HGB 11.6 g/dL (12.0-15.0); Lymphocytes % (A) 12.3 %; MCH 22.6 pg (27.0-32.0); MCHC 29.8 g/dL (32.0-37.0); MCV 75.8 fL (80.0-97.0); Mean Platelet Volume 10.9 fL (9.5-12.2); Monocytes # (A) 0.56 X 10*3/uL (0.20-1.00); Monocytes % (A) 5.3 %; Neutrophils % (A) 81.6 %; Platelet Count 324 X 10*3/uL (140-440); RBC 5.13 X 10*6/uL (4.10-5.20); RDW 15.5 % (11.5-14.5); WBC 10.54 X 10*3/uL (4.50-10.00)
--- NOTE | 2021-01-20 09:21 | P.PN ---
Subjective Patient seen and examined at bedside. She denies chest pain, shortness of breath, fever, or chills. Patient states that her dizziness is still present and she does get nauseated. Especially with sitting up to use the bathroom. Patient requires a two person assist. MRI of the brain was reviewed and there is no evidence for recent infarct. Mild age-related cerebral atrophy and chronic small vessel ischemic changes demonstrated. There are 2 small meningiomas again seen. Chronic left maxillary sinus disease. Objective - Vital Signs Vital signs: Vital Signs Temp 98.5 F 01/20/21 08:29 Pulse 54 L 01/20/21 08:29 Resp 18 01/20/21 08:29 BP 160/73 01/20/21 08:29 Pulse Ox 97 01/20/21 08:29 Intake & Output 01/19/21 01/20/21 01/20/21 18:59 06:59 18:59 Other: Voiding Method Bedside Commode Bedside Commode Bedpan Bedpan # Voids 1 3 # Bowel Movements 1 - Exam General: [non toxic], [no distress], [appears at stated age] Derm: [warm], [dry] Head: [atraumatic], [normocephalic], [symmetric] Eyes: [EOMI], [no lid lag], [anicteric sclera] Mouth: [no lip lesion], [mucus membranes moist] Cardiovascular: [Sinus bradycardia], [grade II murmur], [positive posterior tibial pulse bilateral], Lungs: [CTA bilateral], [no rhonchi, no rales] , [no accessory muscle use] Abdominal: [soft], [ nontender to palpation], [no guarding], [no appreciable organomegaly] Ext: [no gross muscle atrophy], [no edema], [no contractures] Neuro: [ CN II-XI grossly intact], [no focal neuro deficits] Psych: [Alert], [oriented], [appropriate affect.] - Labs CBC & Chem 7: 01/20/21 06:34 01/18/21 07:54 Labs: Abnormal Lab Results - Last 24 Hours (Table) 01/20/21 Range/Units 06:34 WBC 10.54 H (4.50-10.00) X 10*3/uL Hgb 11.6 L (12.0-15.0) g/dL MCV 75.8 L (80.0-97.0) fL MCH 22.6 L (27.0-32.0) pg MCHC 29.8 L (32.0-37.0) g/dL RDW 15.5 H (11.5-14.5) % Neutrophils # 8.60 H (1.80-7.70) X 10*3/uL Eosinophils # 0.01 L (0.04-0.35) X 10*3/uL Assessment and Plan Assessment: 1. Dizziness likely due to vertigo secondary to chronic sinusitis Antibiotics and steroids given secondary to evidence of chronic sinusitis on MRI MRI reviewed and was negative for acute CVA Continue meclizine ENT consulted 2. Nausea secondary to #1 Zofran when necessary 3. Hyper tension uncontrolled increase hydrakazine to 50mg po TID Monitor vitals every 4 hours 4. Constipation Colace daily Senna when necessary 5. PT/OT eval 6. GI DVT prophylaxis 7. A.m. labs
[2021-01-20] MEDS: MECLIZINE 25 MG TAB PO SCH ×2 (09:29→16:47)
[2021-01-20 10:10] LABS: African American GFR (CKD) 66.6 (60.0-200.0); Albumin 3.7 g/dL (3.8-4.9); Albumin/Globulin Ratio 1.54 (1.60-3.17); Anion Gap 8.5 mmol/L (4.00-12.00); BUN/Creat Ratio 19.6 Ratio (12.00-20.00); Blood Urea Nitrogen 19.6 mg/dL (9.0-27.0); Calcium 10.5 mg/dL (8.7-10.3); Carbon Dioxide 24.5 mmol/L (21.6-31.8); Globulin 2.4 g/dL (1.6-3.3); Non-African American GFR(CKD) 57.4 (60.0-200.0); Potassium 4.9 mmol/L (3.5-5.5); Total Bilirubin 0.3 mg/dL (0.30-1.20); Total Protein 6.1 g/dL (6.2-8.2)
[2021-01-20] MEDS: SCOPOLAMINE 1.5MG/72HR PATCH TRANSDERM SCH (11:44)
[2021-01-20] MEDS: LORazepam 1 MG TAB PO SCH ×2 (14:17→19:35)
[2021-01-20] MEDS: PROCHLORPERAZINE 10 MG TAB PO PRN (20:42)
--- NOTE | 2021-01-20 20:48 | CONS ---
CONSULTATION DATE OF SERVICE: 01/20/2021 CHIEF COMPLAINT: Dizziness. HISTORY OF PRESENT ILLNESS: Ms. Stafford is a 70-year-old -Japanese female who morning awakened with severe dizziness. She describes her dizziness on a zero to 10 scale of being a 10, and it continued until made some recent changes to her medications, and her dizziness is now a 7. She describes her dizziness as true vertigo and it is not episodic. She has constant vertigo and she was unable to get out of bed since . She is unable walk on her own because of her severe dizziness. She has had a previous history of a stroke and I did have Neurology evaluate this patient. MRI CT scan was done; I have not seen the results at this point because of some computer issues, but I understand that Neurology has cleared the patient per the nursing staff, and I have been asked to consult as a possible peripheral vestibular issue. The patient denies any otologic symptoms. She denies any fluctuating hearing loss, ear pain, pressure, fullness. She does have some mild chronic intermittent tinnitus bilaterally, but that was an occurrence prior to the balance issue. She denies any acute neurologic issues, either. Her past medical history is positive for obesity, previous stroke, hypertension, osteoarthritis. Past surgical history is positive for hysterectomy. Past alcohol use: None. She is a past smoker but quit many years ago. Vital signs are stable. The patient is afebrile. Twelve-system review was unremarkable. See H and P. In general the patient is an alert, oriented, recumbent 70- year-old -Japanese female in no apparent distress. Well nourished, well developed. No gross abnormalities. The patient is morbidly obese. Head is normocephalic. The face is symmetric. There are no abnormal movements. There is no tenderness to the sinuses or mastoids. There are no nodules, eruptions or parasites on scalp. Ears: Auricles are well-formed. Canals are clear. Tympanic membranes are without bulging or retraction. Nose is patent. No tumors, polyps or masses. Mouth and throat: The patient has some scant postnasal drainage. She is edentulous, has a hyperactive gag reflex. Neck shows no tumors or masses. She does have some osteoarthritis in the sternoclavicular joint but no signs of any tumors or masses. Unable to do Fukuda because of her dizziness. Unable to do Sai-Hallpike maneuver because of her dizziness and her obesity. IMPRESSIONS: Dizziness and giddiness, severe. Rule out vestibular neuronitis. Rule out AWNING ASSEMBLER abnormality. PLAN OF TREATMENT: This patient has had an MRI without contrast. I would recommend that this patient undergo an MRI with gadolinium with attention to the internal auditory canals and brainstem. I am also recommending that we change her antivestibular medication to see if we can partida better improvement in her balance so she can at least ambulate to the bathroom. Prednisone is to be continued on a presumptive basis that this is a vestibular neuronitis. I will be seeing the patient back in the office after she is discharged and we can do the rest of her balance workup on an outpatient basis. Right now I am recommending just control of her symptoms and finish the workup on an outpatient basis. Again, the working diagnosis is one of a vestibular neuronitis at this time. I did discuss these findings with her and her daughter, and we will attempt to manipulate some medications to make her feel better this evening. I will not be following the patient while here in the hospital. If I am needed for repeat consultation, please do not hesitate to contact me. JANNY / IJN: [id number] /
[2021-01-21] MEDS: LORazepam 1 MG TAB PO SCH ×5 (02:21→22:17)
[2021-01-21 06:48] LABS: ALT 27 U/L (4-34); AST 23 U/L (14-36); African American GFR (CKD) 71 (>60 ml/min/1.73 sqM); Albumin 3.1 g/dL (3.5-5.0); Albumin/Globulin Ratio 1.1; Alkaline Phosphatase 81 U/L (38-126); Anion Gap 4 mmol/L; Blood Urea Nitrogen 21 mg/dL (7-17); Calcium 10.8 mg/dL (8.4-10.2); Carbon Dioxide 28 mmol/L (22-30); Chloride 104 mmol/L (98-107); Globulin 2.9 g/dL; Glucose 145 mg/dL (74-99); Non-African American GFR(CKD) 62 (>60 ml/min/1.73 sqM); Potassium 4.7 mmol/L (3.5-5.1); Sodium 136 mmol/L (137-145); Total Bilirubin 0.3 mg/dL (0.2-1.3)
[2021-01-21] MEDS: AMOXIC-POT CLAV 875-125MG 1 EACH TAB PO SCH ×2 (09:26→22:16)
[2021-01-21] MEDS: hydrALAZINE HCL 50 MG TAB PO SCH ×3 (09:26→22:17)
[2021-01-21] MEDS: predniSONE 20 MG TAB PO SCH (09:27)
[2021-01-21] MEDS: lisinopriL 20 MG TAB PO SCH (09:27)
[2021-01-21] MEDS: FAMOTIDINE 20 MG TAB PO SCH (09:27)
[2021-01-21] MEDS: DOCUSATE 100 MG CAP PO SCH (09:27)
[2021-01-21] MEDS: PROCHLORPERAZINE 10 MG TAB PO PRN ×2 (09:51→22:16)
[2021-01-21 11:00] LABS: HCT 36.3 % (37.2-46.3); HGB 11.2 g/dL (12.0-15.0); MCH 23.1 pg (27.0-32.0); MCHC 30.9 g/dL (32.0-37.0); MCV 74.8 fL (80.0-97.0); Mean Platelet Volume 11.3 fL (9.5-12.2); Platelet Count 317 X 10*3/uL (140-440); RBC 4.85 X 10*6/uL (4.10-5.20); RDW 15.7 % (11.5-14.5); WBC 9.79 X 10*3/uL (4.50-10.00)
--- NOTE | 2021-01-21 12:50 | MR ---
EXAMINATION TYPE: MR brain and iac wo/w con DATE OF EXAM: 01/21/2021 COMPARISON: 01/18/2021 HISTORY: severe vertigo TECHNIQUE: Multiplanar, multisequence images of the brain and brainstem is performed without and with IV contras t, utilizing 9 mL intravenous Gadavist . FINDINGS: Diffusion weighted images demonstrate no evidence of a recent infarct or other diffusion ab normality area There is mild ventricular and sulcal prominence. Few small scattered foci of T2 hyperintensity throug hout the white matter bilaterally. Redemonstration of 2.3 x 1.3 cm extra-axial right frontal mass and 1.2 cm high more midline left frontal extra-axial mass . Slight T1 hypointensity and T2 hyperintensi ty consistent with small meningiomas. Midline structures demonstrate normal morphology. The craniocervical junction appears within normal limits changes of chronic sinusitis. Globes are symmetric. Nonspecific areas of abnormal signal the w vin matter most typical of remote white matter ischemia. There is no evidence of cerebellopontine angle mass or acoustic schwannoma. In the posterior nasophar ynx there is a 1 cm area of abnormal signal most suggestive of a Thornwaldt cyst correlate with direc t visualization as clinically warranted confirmation. IMPRESSION: 1. Stable bilateral extra-axial masses most typical of meningioma is unchanged from prior exam. 2. Degenerative and nonspecific white matter changes most typical remote white matter ischemia. 3. No evidence of cerebellopontine angle mass or acoustic schwannoma. 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
[2021-01-21 15:41] LABS: Basophils # (A) 0.02 X 10*3/uL (0.00-0.10); Basophils % (A) 0.2 %; Eosinophils # (A) 0.03 X 10*3/uL (0.04-0.35); Eosinophils % (A) 0.3 %; Lymphocytes # (A) 1.53 X 10*3/uL (0.90-5.00); Lymphocytes % (A) 15.6 %; Monocytes % (A) 7.2 %; Neutrophils # (A) 7.46 X 10*3/uL (1.80-7.70); Neutrophils % (A) 76.2 %
[2021-01-21] MEDS: Acetaminophen-Codeine 300-30mg TAB PO PRN (15:59)
--- NOTE | 2021-01-21 17:15 | P.PN ---
Subjective Progress Note Date: 01/21/21 Hospital course: Patient is a very pleasant 70-year-old female with a past medical history of hypertension, chronic neck and back pain status post cervical and lumbar fusions, prediabetes with a hemoglobin A1c of 6.2, and history of a hemorrhagic stroke in 2013.patient presented to the emergency department on 01/17/21 with a chief complaint of extreme dizziness. Pt was seen and fully evaluated in the ER and admitted under our services with consultation to neurology. * Chest x-ray negative for acute cardiopulmonary process revealing chronic changes. * CT brain without contrast showing no acute intercranial hemorrhage, positive for mild diffuse age related cerebral atrophy and chronic small vessel ischemic changes. * Echocardiogram revealing normal EF between 55 and 60% with moderately dilated left atrium and a small generalized pericardial effusion present. * EKG showing sinus bradycardia at 56 bpm with no noted T wave or ST abnormality showing no signs of acute ischemia. * CTA head and neck negative for acute intercranial process showing no significant stenosis and common or internal carotid arteries, and no significant stenosis or aneurysm at the level of [place]. A bovine type aortic arch and Incidental finding extra-axial 2.3 x 1.0 cm enhancing mass right frontal lobe consistent with meningioma and a second 1.0 cm mass to right frontal lobe again consistent with meningioma. * MRI brain without contrast revealing no MRI evidence for recent infarct with mild age related cerebral atrophy and chronic small vessel D make changes redemonstrated and 2 small meningiomas. Physical exam: Patient seen and fully evaluated at bedside upon return from MRI this morning. Patient reports continued feeling of "wooziness". Patient describes this as feeling dizzy, lightheaded, and nauseous all at the same time. patient denies having any headache, changes in her vision or hearing, chest pain or palpitations, shortness of breath, dyspnea with exertion, episodes of vomiting, or experiencing any numbness/tingling/weakness in her extremities. Morning labs reviewed. VSS with the exception of bradycardic rate of 50 bpm. Vital signs reviewed and stable. General: Nontoxic, no distress and appears stated age. Derm: Skin warm and dry, normal coloration for ethnicity. Head: Atraumatic, normocephalic and symmetric. Eyes: EOMs intact, no lid lag, and anicteric sclera Mouth: no lip lesions, mucus membranes moist Cardiovascular: bradycardic rate and regular rhythm with normal S1S2, no murmur, positive posterior tibial pulses bilaterally, and cap refill < 2 seconds. Lungs: Respirations even, regular, and unlabored on room air. Lungs CTA bilaterally, no rhonchi, no rales, no wheezing, and no accessory muscle usage. Abdominal: soft, nontender to palpation, no guarding, no appreciable organomegaly Ext: ROM intact. No gross muscle atrophy, no edema, no contractures Neuro: Speech clear, face symmetrical and CN II-XII grossly intact with no noted focal neuro deficits Psych: Alert and oriented to person, place, time, and situation. Appropriate and pleasant affect. Assessment and Plan of Care: Persistent Dizziness likely due to vertigo secondary to chronic sinusitis Meningiomas right frontal lobe Nausea secondary to dizziness -CT brain without contrast showing no acute intercranial hemorrhage, positive for mild diffuse age related cerebral atrophy and chronic small vessel ischemic changes. -Echocardiogram revealing normal EF between 55 and 60% with moderately dilated left atrium and a small generalized pericardial effusion present. -EKG showing sinus bradycardia at 56 bpm with no noted T wave or ST abnormality showing no signs of acute ischemia. -CTA head and neck negative for acute intercranial process showing no significant stenosis and common or internal carotid arteries, and no significant stenosis or aneurysm at the level of [place]. A bovine type aortic arch and Inci dental finding extra-axial 2.3 x 1.0 cm enhancing mass right frontal lobe consistent with meningioma and a second 1.0 cm mass to right frontal lobe again consistent with meningioma. -MRI brain without contrast revealing no MRI evidence for recent infarct with mild age related cerebral atrophy and chronic small vessel D make changes redemonstrated and 2 small meningiomas. -Neurology following, appreciate further recommendations -Antibiotics and steroids given secondary to evidence of chronic sinusitis on MRI -Continue meclizine -ENT consulted, Dr. Rodriguez evaluated recommending continued control of symptoms and follow up on an outpatient basis, recommending continued prednisone on a presumptive basis that this is vestibular neuronitis -continue anti-emetics as needed for nausea and/or vomiting. -scopolamine patch -Patient going down for repeat MRI of brain with and without contrast this morning. Hypertension Monitor vital signs and continue daily medication regimen with hydralazine and lisinopril. Constipation Colace 100 mg daily. CODE STATUS: Full code DVT prophylaxis: SCDs Discussed with: Patient Anticipated discharge date: clinical course to determine Anticipated discharge place: home A total of 45 minutes was spent on the care of this complex patient more than 50% of the time was spent in counseling and care coordination. Objective - Vital Signs Vital signs: Vital Signs Temp 98.2 F 01/21/21 02:36 Pulse 55 L 01/21/21 02:36 Resp 17 01/21/21 02:36 BP 165/81 01/21/21 02:36 Pulse Ox 97 01/21/21 02:36 Intake & Output 01/20/21 01/21/21 01/21/21 18:59 06:59 18:59 Intake Total 472 Balance 472 Intake: Oral 472 Other: Voiding Method Bedside Commode Bedside Commode Bedpan Bedpan # Voids 1 3 # Bowel Movements 1 - Labs CBC & Chem 7: 01/21/21 04:56 01/21/21 04:56 Labs: Abnormal Lab Results - Last 24 Hours (Table) 01/20/21 01/20/21 01/21/21 Range/Units 06:34 06:34 04:56 WBC 10.54 H (4.50-10.00) X 10*3/uL Hgb 11.6 L (12.0-15.0) g/dL MCV 75.8 L (80.0-97.0) fL MCH 22.6 L (27.0-32.0) pg MCHC 29.8 L (32.0-37.0) g/dL RDW 15.5 H (11.5-14.5) % Neutrophils # 8.60 H (1.80-7.70) X 10*3/uL Eosinophils # 0.01 L (0.04-0.35) X 10*3/uL Sodium 136 L (137-145) mmol/L BUN 21 H (7-17) mg/dL Est GFR (CKD-EPI)NonAf 57.4 L (60.0-200.0) Glucose 122 H 145 H (70-110) mg/dL Calcium 10.5 H 10.8 H (8.7-10.3) mg/dL Total Protein 6.1 L 6.0 L (6.2-8.2) g/dL Albumin 3.7 L 3.1 L (3.8-4.9) g/dL Albumin/Globulin Ratio 1.54 L (1.60-3.17) g/dL
[2021-01-22 08:02] VITALS: BMI 36.0
[2021-01-22] MEDS: DOCUSATE 100 MG CAP PO SCH (08:24)
[2021-01-22] MEDS: FAMOTIDINE 20 MG TAB PO SCH (08:24)
[2021-01-22] MEDS: predniSONE 20 MG TAB PO SCH (08:24)
[2021-01-22] MEDS: PROCHLORPERAZINE 10 MG TAB PO PRN ×2 (08:25→19:14)
[2021-01-22] MEDS: hydrALAZINE HCL 50 MG TAB PO SCH ×3 (08:25→19:14)
[2021-01-22] MEDS: LORazepam 1 MG TAB PO SCH ×4 (08:25→22:26)
[2021-01-22] MEDS: AMOXIC-POT CLAV 875-125MG 1 EACH TAB PO SCH ×2 (08:25→19:14)
[2021-01-22] MEDS: Acetaminophen-Codeine 300-30mg TAB PO PRN ×2 (10:07→22:25)
--- NOTE | 2021-01-22 13:25 | P.CONS ---
History of Present Illness - Chief Complaint Gait disturbance - History of Present Illness I had the opportunity to see patient for inpatient rehab consultation with regard to gait disturbance. Patient admitted to [facility] January 17 with generalized weakness and vertigo. Seen by neurology, Dr. Larry Hansen. Chest x- ray demonstrates chronic change and cardiomegaly. Head CT with diffuse degenerative change. Angiogram CT demonstrates right frontal lesion consistent with meningioma. 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 PT reports moderate assistance bed mobility, transfer, gait 5 feet roller walker. OT reports moderate assistance for feeding and grooming, maximal assistance for upper dressing and total assistance for lower dressing and bathing. Modified independent with toileting once on 12. 2 person moderate assistance for toilet transfer. Previous functional history as elicited from patient: 70-year-old left-handed black female who lives in second-floor problem, elevator, alone. On disability. Reports daughter does cooking, laundry, driving and lives in [facility]. Otherwise receives assistance for sitdown shower and dressing from daughter. Uses 4 wheeled walker for mobility. Review of Systems Review of systems: ENT: Dizziness and vertigo. Eyes: Denies discharge or photophobia. Cardiac: Denies chest pain or palpitation. Pulmonary: Denies cough or shortness of breath. Breast: Denies discharge or lumps. Gastrointestinal: Denies nausea, emesis, constipation, diarrhea. Genitourinary: Denies discharge or frequency. Musculoskeletal: Denies muscle or bone aches. Neurologic: Generalized weakness. Endocrine: Denies shakes or sweats. Oncology: Denies cancers. Dermatologic: Denies rash, itching, pruritus. ALLERGY/immunology: Denies sneezes, rashes. Past Medical History Past Medical History: Hypertension History of Any Multi-Drug Resistant Organisms: None Reported Past Surgical History: Hysterectomy Past Psychological History: No Psychological Hx Reported Smoking Status: Former smoker Past Alcohol Use History: None Reported Past Drug Use History: None Reported Medications and Allergies Home Medications Medication Instructions Recorded Confirmed Type Aspirin EC [Ecotrin Low Dose] 81 mg PO DAILY PRN 01/17/21 01/17/21 History Cholecalciferol [Vitamin D3 (25 25 mcg PO DAILY 01/17/21 01/17/21 History Mcg = 1000 Iu)] Famotidine 20 mg PO BID 01/17/21 01/17/21 History Multivitamins, Thera [Multivitamin 1 tab PO DAILY 01/17/21 01/17/21 History (formulary)] clonazePAM [KlonoPIN] 0.5 mg PO DAILY PRN 01/17/21 01/17/21 History lisinopriL 40 mg PO DAILY 01/17/21 01/17/21 History oxyCODONE-APAP 5-325MG [Percocet 1 tab PO QID PRN 01/17/21 01/17/21 History 5-325 mg] Allergies Allergy/AdvReac Type Severity Reaction Status Date / Time No Known Allergies Allergy Verified 01/17/21 09:25 Physical Exam Vitals: Vital Signs Temp Pulse Resp BP Pulse Ox 01/22/21 08:00 98.2 F 56 L 16 144/74 98 01/22/21 01:56 98.0 F 53 L 16 143/79 100 01/21/21 20:00 57 L 16 01/21/21 18:50 98.6 F 57 L 16 132/76 96 01/21/21 14:00 97.9 F 100 18 136/73 99 Intake and Output 01/21/21 01/22/21 01/22/21 22:59 06:59 14:59 Output Total 2 Balance -2 Output: Urine 2 Other: Voiding Method Bedside Commode Bedside Commode Bedpan Bedpan # Voids 1 3 # Bowel Movements 1 Weight 89.358 kg Skin: Atrophic, intact. General: Medium build and comfortable appearance. Head: Normocephalic, atraumatic. Eyes: Symmetric. Pupils equal round. Ears: Symmetric. Hearing within normal limits. Mouth: Clear. Neck: Supple. Carotid without bruit. Cardiac: Regular rate and rhythm. Lungs: Clear anteriorly and posteriorly. Abdomen: Soft active nontender. Extremities: Normal tone. Neurological: Mental status: Alert, cooperative, pleasant. Cranial nerves: Symmetric facial tone and trapezius. Motor: Active movement all 4 limbs but about antigravity at best in arms and less than antigravity in legs. Sensation: Intact throughout. DTRs: Symmetric and equal throughout. Mobility: Requires physical assist for sitting, standing, mobility and room. Results CBC & Chem 7: 01/21/21 04:56 01/21/21 04:56 Labs: Abnormal Lab Results - Last 24 Hours (Table) 01/21/21 Range/Units 04:56 Immature Gran # 0.05 H (0.00-0.04) X 10*3/uL Eosinophils # 0.03 L (0.04-0.35) X 10*3/uL Assessment and Plan (1) Vertigo Current Visit: Yes Status: Acute Code(s): R42 - DIZZINESS AND GIDDINESS SNOMED Code(s): 772720332 Plan: Impression: 1. Gait disturbance. 2. Vertigo. 3. Hypertension. Comments and plan: At this time PT, OT, GI TECH ongoing. Safety concerns noted. There are some endurance issues. Discussed possible inpatient rehab or similar with patient and she prefers to [facility] where her daughter lives. Should investigate that and most likely would do better with SNF placement rather than inpatient rehab.
[2021-01-22] MEDS: lisinopriL 20 MG TAB PO SCH (13:29)
--- NOTE | 2021-01-22 18:31 | P.PN ---
Subjective Progress Note Date: 01/22/21 Hospital course: Patient is a very pleasant 70-year-old female with a past medical history of hypertension, chronic neck and back pain status post cervical and lumbar fusions, prediabetes with a hemoglobin A1c of 6.2, and history of a hemorrhagic stroke in 2013.patient presented to the emergency department on 01/17/21 with a chief complaint of extreme dizziness. Pt was seen and fully evaluated in the ER and admitted under our services with consultation to neurology and ENT. * Chest x-ray negative for acute cardiopulmonary process revealing chronic changes. * CT brain without contrast showing no acute intercranial hemorrhage, positive for mild diffuse age related cerebral atrophy and chronic small vessel ischemic changes. * Echocardiogram revealing normal EF between 55 and 60% with moderately dilated left atrium and a small generalized pericardial effusion present. * EKG showing sinus bradycardia at 56 bpm with no noted T wave or ST abnormality showing no signs of acute ischemia. * CTA head and neck negative for acute intercranial process showing no significant stenosis and common or internal carotid arteries, and no significant stenosis or aneurysm at the level of [place]. A bovine type aortic arch and Incidental finding extra-axial 2.3 x 1.0 cm enhancing mass right f rontal lobe consistent with meningioma and a second 1.0 cm mass to right frontal lobe again consistent with meningioma. * MRI brain without contrast revealing no MRI evidence for recent infarct with m ild age related cerebral atrophy and chronic small vessel ischemic changes redemonstrated and 2 small meningiomas. 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 Physical exam: Patient seen and fully evaluated at bedside this morning. Patient reports continued feeling of "wooziness" and difficulties with ambulation due to this. Discussed possibility of inpatient rehabilitation and upon discharge as patient is very concerned of dizziness and lightheadedness with inability to ambulate that if she falls no one will be able to help her. Consult placed to Dr. High at this time. Patient otherwise stable at this time. She continues to deny having any headache, changes in her vision, changes in hearing or tinnitus, chest pain or palpitations, shortness of breath, dyspnea with exertion, episodes of vomiting, or experiencing any numbness/tingling/weakness in her extremities. Vital signs remain unremarkable. Vital signs reviewed and stable. General: Nontoxic, no distress and appears stated age. Derm: Skin warm and dry, normal coloration for ethnicity. Head: Atraumatic, normocephalic and symmetric. Eyes: EOMs intact, no lid lag, and anicteric sclera Mouth: no lip lesions, mucus membranes moist Cardiovascular: bradycardic rate and regular rhythm with normal S1S2, no murmur, positive posterior tibial pulses bilaterally, and cap refill < 2 seconds. Lungs: Respirations even, regular, and unlabored on room air. Lungs CTA bilaterally, no rhonchi, no rales, no wheezing, and no accessory muscle usage. Abdominal: soft, nontender to palpation, no guarding, no appreciable organomegaly Ext: ROM intact. No gross muscle atrophy, no edema, no contractures Neuro: Speech clear, face symmetrical and CN II-XII grossly intact with no noted focal neuro deficits Psych: Alert and oriented to person, place, time, and situation. Appropriate and pleasant affect. Assessment and Plan of Care: Persistent Dizziness likely due to vertigo secondary to chronic sinusitis Meningiomas right frontal lobe Nausea secondary to dizziness -CT brain without contrast showing no acute intercranial hemorrhage, positive for mild diffuse age related cerebral atrophy and chronic small vessel ischemic changes. -Echocardiogram revealing normal EF between 55 and 60% with moderately dilated left atrium and a small generalized pericardial effusion present. -EKG showing sinus bradycardia at 56 bpm with no noted T wave or ST abnormality showing no signs of acute ischemia. -CTA head and neck negative for acute intercranial process showing no signific ant stenosis and common or internal carotid arteries, and no significant stenosis or aneurysm at the level of [place]. A bovine type aortic arch and Incidental finding extra-axial 2.3 x 1.0 cm enhancing mass right frontal lobe consistent with meningioma and a second 1.0 cm mass to right frontal lobe again consistent with meningioma. -MRI brain without contrast revealing no MRI evidence for recent infarct with mild age related cerebral atrophy and chronic small vessel ischemic changes redemonstrated and 2 small meningiomas. -Neurology following, appreciate further recommendations -Antibiotics and steroids given secondary to evidence of chronic sinusitis on MRI -Continue meclizine -ENT consulted, Dr. Rodriguez evaluated recommending continued control of symptoms and follow up on an outpatient basis, recommending continued prednisone on a presumptive basis that this is vestibular neuronitis -continue anti-emetics as needed for nausea and/or vomiting. 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 Hypertension Monitor vital signs and continue daily medication regimen with hydralazine and lisinopril. Constipation Colace 100 mg daily. CODE STATUS: Full code DVT prophylaxis: SCDs Discussed with: Patient Anticipated discharge date: clinical course to determine Anticipated discharge place: Consult placed to Dr. High for inpatient rehab upon discharge as patient continues to have persistent dizziness A total of 45 minutes was spent on the care of this complex patient more than 50% of the time was spent in counseling and care coordination. Objective - Vital Signs Vital signs: Vital Signs Temp 98.2 F 01/22/21 08:00 Pulse 56 L 01/22/21 08:00 Resp 16 01/22/21 08:00 BP 144/74 01/22/21 08:00 Pulse Ox 98 01/22/21 08:00 Intake & Output 01/21/21 01/22/21 01/22/21 18:59 06:59 18:59 Output Total 2 Balance -2 Weight 89.358 kg Output: Urine 2 Other: Voiding Method Bedside Commode Bedpan # Voids 1 3 # Bowel Movements 1 - Labs CBC & Chem 7: 01/21/21 04:56 01/21/21 04:56 Labs: Abnormal Lab Results - Last 24 Hours (Table) 01/21/21 Range/Units 04:56 Hgb 11.2 L (12.0-15.0) g/dL Hct 36.3 L (37.2-46.3) % MCV 74.8 L (80.0-97.0) fL MCH 23.1 L (27.0-32.0) pg MCHC 30.9 L (32.0-37.0) g/dL RDW 15.7 H (11.5-14.5) % Immature Gran # 0.05 H (0.00-0.04) X 10*3/uL Eosinophils # 0.03 L (0.04-0.35) X 10*3/uL
[2021-01-22 19:36] LABS: Glucose,Whole Blood 128 mg/dL (75-99)
[2021-01-23] MEDS: LORazepam 1 MG TAB PO SCH ×4 (08:30→22:05)
[2021-01-23] MEDS: DOCUSATE 100 MG CAP PO SCH (08:30)
[2021-01-23] MEDS: Acetaminophen-Codeine 300-30mg TAB PO PRN (08:30)
[2021-01-23] MEDS: predniSONE 20 MG TAB PO SCH (08:30)
[2021-01-23] MEDS: FAMOTIDINE 20 MG TAB PO SCH (08:31)
[2021-01-23] MEDS: lisinopriL 20 MG TAB PO SCH (08:31)
[2021-01-23] MEDS: AMOXIC-POT CLAV 875-125MG 1 EACH TAB PO SCH ×2 (08:32→19:11)
[2021-01-23] MEDS: SCOPOLAMINE 1.5MG/72HR PATCH TRANSDERM SCH (08:32)
[2021-01-23] MEDS: hydrALAZINE HCL 50 MG TAB PO SCH ×3 (08:32→19:11)
--- NOTE | 2021-01-23 13:59 | P.PN ---
Subjective Progress Note Date: 01/23/21 Principal diagnosis: Patient still dizzy no chest pain or shortness of breath Constitutional: No acute distress, conversant, pleasant Eyes: Anicteric sclerae, moist conjunctiva, no lid-lag PERRLA ENMT: NC/AT Oropharynx clear, no erythema, exudates Neck: Supple, FROM, no masses, or JVD No carotid bruits No thyromegaly Lungs: Clear to auscultation Clear to percussion Normal respiratory effort, no accessory muscle use Cardiovascular: Heart regular in rate and rhythm, No murmurs, gallops, or rubs No peripheral edema Abdominal: Soft Nontender, no guarding, rebound or rigidity Abdomen moving with respiration Normoactive bowel sounds No hepatomegaly, No splenomegaly No palpabl e mass No abdominal wall hernia noted Skin: Normal temperature, tone, texture, turgor No induration No subcutaneous nodules No rash, lesions No ulcers Extremities: No digital cyanosis No clubbing Pedal pulses intact and symmetrical Radial pulses intact and symmetrical Normal gait and station No calf tenderness Psychiatric:Alert and oriented to person, place and time Appropriate affect Intact judgement Neuro: Muscles Strength 5/5 in all 4 extremities Sensation to light touch grossly present throughout Cranial nerves II-XII grossly intact No focal sensory deficits Persistent Dizziness likely due to vertigo secondary to chronic sinusitis Meningiomas right frontal lobe Nausea secondary to dizziness -CT brain without contrast showing no acute intercranial hemorrhage, positive for mild diffuse age related cerebral atrophy and chronic small vessel ischemic changes. -Echocardiogram revealing normal EF between 55 and 60% with moderately dilated left atrium and a small generalized pericardial effusion present. -EKG showing sinus bradycardia at 56 bpm with no noted T wave or ST abnormality showing no signs of acute ischemia. -CTA head and neck negative for acute intercranial process showing no significant stenosis and common or internal carotid arteries, and no significant stenosis or aneurysm at the level of [place]. A bovine type aortic arch and Incidental finding extra-axial 2.3 x 1.0 cm enhancing mass right frontal lobe consistent with meningioma and a second 1.0 cm mass to right frontal lobe again consistent with meningioma. -MRI brain without contrast revealing no MRI evidence for recent infarct with mild age related cerebral atrophy and chronic small vessel ischemic changes redemonstrated and 2 small meningiomas. -Neurology following, appreciate further recommendations -Antibiotics and steroids given secondary to evidence of chronic sinusitis on MRI -Continue meclizine -ENT consulted, Dr. Rodriguez evaluated recommending continued control of symptoms and follow up on an outpatient basis, recommending continued prednisone on a presumptive basis that this is vestibular neuronitis -continue anti-emetics as needed for nausea and/or vomiting. 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 Hypertension Monitor vital signs and continue daily medication regimen with hydralazine and lisinopril. Constipation Colace 100 mg daily. CODE STATUS: Full code DVT prophylaxis: SCDs Discussed with: Patient A Overall continues to be stable but continues to be dizzy considering inpatient rehab Objective - Vital Signs Vital signs: Vital Signs Temp 97.5 F L 01/23/21 13:42 Pulse 55 L 01/23/21 13:42 Resp 18 01/23/21 13:42 BP 146/78 01/23/21 13:42 Pulse Ox 99 01/23/21 13:42 Intake & Output 01/22/21 01/23/21 01/23/21 18:59 06:59 18:59 Intake Total 118 Balance 118 Weight 89.358 kg Intake: Oral 118 Other: Voiding Method Bedside Commode Bedside Commode Bedpan Bedpan # Voids 3 3 1 # Bowel Movements 2 1 - Labs CBC & Chem 7: 01/21/21 04:56 01/21/21 04:56 Labs: Abnormal Lab Results - Last 24 Hours (Table) 01/22/21 Range/Units 19:35 POC Glucose (mg/dL) 128 H (75-99) mg/dL
[2021-01-24] MEDS: lisinopriL 20 MG TAB PO SCH (08:48)
[2021-01-24] MEDS: hydrALAZINE HCL 50 MG TAB PO SCH ×2 (08:48→17:08)
[2021-01-24] MEDS: AMOXIC-POT CLAV 875-125MG 1 EACH TAB PO SCH (08:48)
[2021-01-24] MEDS: predniSONE 20 MG TAB PO SCH (08:48)
[2021-01-24] MEDS: LORazepam 1 MG TAB PO SCH ×2 (08:48→14:35)
[2021-01-24] MEDS: DOCUSATE 100 MG CAP PO SCH (08:49)
[2021-01-24] MEDS: FAMOTIDINE 20 MG TAB PO SCH (08:49)
[2021-01-24] MEDS: Acetaminophen-Codeine 300-30mg TAB PO PRN (08:55)
[2021-01-24 09:00] VITALS: PULSE 60
--- NOTE | 2021-01-24 10:54 | P.PN ---
Subjective Progress Note Date: 01/24/21 Patient continues to complain of dizziness today Constitutional: No acute distress, conversant, pleasant Eyes: Anicteric sclerae, moist conjunctiva, no lid-lag PERRLA ENMT: NC/AT Oropharynx clear, no erythema, exudates Neck: Supple, FROM, no masses, or JVD No carotid bruits No thyromegaly Lungs: Clear to auscultation Clear to percussion Normal respiratory effort, no accessory muscle use Cardiovascular: Heart regular in rate and rhythm, No murmurs, gallops, or rubs No peripheral edema Abdominal: Soft Nontender, no guarding, rebound or rigidity Abdomen moving with respiration Normoactive bowel sounds No hepatomegaly, No splenomegaly No palpable mass No abdominal wall hernia noted Skin: Normal temperature, tone, texture, turgor No induration No subcutaneous nodules No rash, lesions No ulcers Extremities: No digital cyanosis No clubbing Pedal pulses intact and symmetrical Radial pulses intact and symmetrical Normal gait and station No calf tenderness Psychiatric:Alert and oriented to person, place and time Appropriate affect Intact judgement Neuro: Muscles Strength 5/5 in all 4 extremities Sensation to light touch grossly present throughout Cranial nerves II-XII grossly intact No focal sensory deficits Persistent Dizziness likely due to vertigo secondary to chronic sinusitis Meningiomas right frontal lobe Nausea secondary to dizziness -CT brain without contrast showing no acute intercranial hemorrhage, positive for mild diffuse age related cerebral atrophy and chronic small vessel ischemic changes. -Echocardiogram revealing normal EF between 55 and 60% with moderately dilated left atrium and a small generalized pericardial effusion present. -EKG showing sinus bradycardia at 56 bpm with no noted T wave or ST abnormality showing no signs of acute ischemia. -CTA head and neck negative for acute intercranial process showing no significant stenosis and common or internal carotid arteries, and no significant stenosis or aneurysm at the level of [place]. A bovine type aortic arch and Incidental finding extra-axial 2.3 x 1.0 cm enhancing mass right frontal lobe consistent with meningioma and a second 1.0 cm mass to right frontal lobe again consistent with meningioma. -MRI brain without contrast revealing no MRI evidence for recent infarct with mild age related cerebral atrophy and chronic small vessel ischemic changes redemonstrated and 2 small meningiomas. -Neurology following, appreciate further recommendations -Antibiotics and steroids given secondary to evidence of chronic sinusitis on MRI -Continue meclizine -ENT consulted, Dr. Rodriguez evaluated recommending continued control of symptoms and follow up on an outpatient basis, recommending continued prednisone on a presumptive basis that this is vestibular neuronitis -continue anti-emetics as needed for nausea and/or vomiting. 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 Hypertension Monitor vital signs and continue daily medication regimen with hydralazine and lisinopril. Constipation Colace 100 mg daily. Patient needs rehab as continues to be dizzy and high risk for falling CODE STATUS: Full code DVT prophylaxis: SCDs Discussed with: Patient A Objective - Vital Signs Vital signs: Vital Signs Temp 98.0 F 01/24/21 08:00 Pulse 60 01/24/21 08:45 Resp 17 01/24/21 08:00 BP 142/66 01/24/21 08:00 Pulse Ox 97 01/24/21 08:00 Intake & Output 01/23/21 01/24/21 01/24/21 18:59 06:59 18:59 Intake Total 222 118 Balance 222 118 Intake: Oral 222 118 Other: Voiding Method Bedside Commode Bedside Commode Bedpan Bedpan # Voids 4 3 # Bowel Movements 1 1 - Labs CBC & Chem 7: 01/21/21 04:56 01/21/21 04:56
[2021-01-24 15:06] VITALS: BP 172/72; RESP 16; TEMP 98.2
--- NOTE | 2021-01-24 15:13 | P.DS ---
Providers Date of admission: 01/17/21 14:05 Expected date of discharge: 01/24/21 Attending physician: Wayne James MD Consults: 01/17/21 10:57 Consult Physician Urgent Consulting Provider: Larry Hansen Consult Reason/Comments: Vertigo Do you want consulting provider notified?: Yes 01/20/21 08:44 Consult Physician Urgent Consulting Provider: Brown Rodriguez Consult Reason/Comments: severe dizziness Do you want consulting provider notified?: Yes 01/22/21 12:10 Consult Physician Routine Consulting Provider: Nahun High Consult Reason/Comments: in patient PT/OT due to persistent severe dizziness Do you want consulting provider notified?: Yes Primary care physician: Physician Nonstaff Hospital Course: Meningiomas right frontal lobe Nausea secondary to dizziness -CT brain without contrast showing no acute intercranial hemorrhage, positive for mild diffuse age related cerebral atrophy and chronic small vessel ischemic changes. -Echocardiogram revealing normal EF between 55 and 60% with moderately dilated left atrium and a small generalized pericardial effusion present. -EKG showing sinus bradycardia at 56 bpm with no noted T wave or ST abnormality showing no signs of acute ischemia. -CTA head and neck negative for acute intercranial process showing no significant stenosis and common or internal carotid arteries, and no significant stenosis or aneurysm at the level of [place]. A bovine type aortic arch and Incidental finding extra-axial 2.3 x 1.0 cm enhancing mass right frontal lobe consistent with meningioma and a second 1.0 cm mass to right frontal lobe again consistent with meningioma. -MRI brain without contrast revealing no MRI evidence for recent infarct with mild age related cerebral atrophy and chronic small vessel ischemic changes redemonstrated and 2 small meningiomas. -Neurology following, appreciate further recommendations -Antibiotics and steroids given secondary to evidence of chronic sinusitis on MRI -Continue meclizine -ENT consulted, Dr. Rodriguez evaluated recommending continued control of symptoms and follow up on an outpatient basis, recommending continued prednisone on a presumptive basis that this is vestibular neuronitis -continue anti-emetics as needed for nausea and/or vomiting. 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 Hypertension Monitor vital signs and continue daily medication regimen with hydralazine and lisinopril. Constipation Colace 100 mg daily. Patient needs rehab as continues to be dizzy and high risk for falling Overall the patient admitted to the hospital with dizziness which was thought to be nonspecific and likely ventricle no evidence of acute ischemia and no evidence of acute coronary syndrome patient was stable during the hospital stay patient needs to be discharged to rehab to continue physical therapy and because of the high risk of falling patient will follow-up with neurology as an outpatient in the week or 2 Constitutional: No acute distress, conversant, pleasant Eyes: Anicteric sclerae, moist conjunctiva, no lid-lag PERRLA ENMT: NC/AT Oropharynx clear, no erythema, exudates Neck: Supple, FROM, no masses, or JVD No carotid bruits No thyromegaly Lungs: Clear to auscultation Clear to percussion Normal respiratory effort, no accessory muscle use Cardiovascular: Heart regular in rate and rhythm, No murmurs, gallops, or rubs No peripheral edema Abdominal: Soft Nontender, no guarding, rebound or rigidity Abdomen moving with respiration Normoactive bowel sounds No hepatomegaly, No splenomegaly No palpable mass No abdominal wall hernia noted Skin: Normal temperature, tone, texture, turgor No induration No subcutaneous nodules No rash, lesions No ulcers Extremities: No digital cyanosis No clubbing Pedal pulses intact and symmetrical Radial pulses intact and symmetrical Normal gait and station No calf tenderness Psychiatric:Alert and oriented to person, place and time Appropriate affect Intact judgement Neuro: Muscles Strength 5/5 in all 4 extremities Sensation to light touch grossly present throughout Cranial nerves II-XII grossly intact No focal sensory deficits Discharge diagnoses Vertical clinically stable patient needs to be discharged to rehab for continued physical therapy No evidence of acute coronary syndrome or acute CVA Anxiety Chronic pain Patient Condition at Discharge: Good Plan - Discharge Summary Discharge Rx Participant: No New Discharge Prescriptions: New Meclizine [Antivert] 25 mg PO TID 10 Days #30 tab Aspirin 81 mg PO DAILY PRN tab PRN Reason: Pain Amoxic-Pot Clav 875-125Mg [Augmentin 875-125] 1 each PO Q12HR 7 Days #14 tab clonazePAM [KlonoPIN] 0.5 mg PO DAILY PRN tab PRN Reason: Anxiety Continue Multivitamins, Thera [Multivitamin (formulary)] 1 tab PO DAILY Cholecalciferol [Vitamin D3 (25 Mcg = 1000 Iu)] 25 mcg PO DAILY lisinopriL 40 mg PO DAILY Famotidine 20 mg PO BID oxyCODONE-APAP 5-325MG [Percocet 5-325 mg] 1 tab PO QID PRN PRN Reason: Pain Discontinued Aspirin EC [Ecotrin Low Dose] 81 mg PO DAILY PRN PRN Reason: Pain clonazePAM [KlonoPIN] 0.5 mg PO DAILY PRN PRN Reason: Anxiety Discharge Medication List Cholecalciferol [Vitamin D3 (25 Mcg = 1000 Iu)] 25 mcg PO DAILY 01/17/21 [History] Famotidine 20 mg PO BID 01/17/21 [History] Multivitamins, Thera [Multivitamin (formulary)] 1 tab PO DAILY 01/17/21 [History] lisinopriL 40 mg PO DAILY 01/17/21 [History] oxyCODONE-APAP 5-325MG [Percocet 5-325 mg] 1 tab PO QID PRN 01/17/21 [History] Amoxic-Pot Clav 875-125Mg [Augmentin 875-125] 1 each PO Q12HR 7 Days #14 tab 01/24/21 [Rx] Aspirin 81 mg PO DAILY PRN tab 01/24/21 [Rx] Meclizine [Antivert] 25 mg PO TID 10 Days #30 tab 01/24/21 [Rx] clonazePAM [KlonoPIN] 0.5 mg PO DAILY PRN tab 01/24/21 [Rx] Follow up Appointment(s)/Referral(s): Nonstaff,Physician [Primary Care Provider] - 1-2 days Discharge Disposition: TRANSFER TO SNF/ECF
== END 2021-01-24 17:10 | disposition home or self-care (01) | DRG 153 ==
LOC: EC 08:18 → 6NMEDSUR 11:03 → OBSVTOIN 14:05 → 6NMEDSUR 17:05
PROVIDERS: ADMIT Internal Medicine; ATTEND Internal Medicine
DX: J32.0 Chronic maxillary sinusitis (principal); I31.3 Pericardial effusion (noninflammatory); R42 Dizziness and giddiness; D32.0 Benign neoplasm of cerebral meninges; Z20.822 Contact with and (suspected) exposure to COVID-19; E66.01 Morbid (severe) obesity due to excess calories; F41.9 Anxiety disorder, unspecified; G89.29 Other chronic pain; H93.13 Tinnitus, bilateral; Z68.36 Body mass index [BMI] 36.0-36.9, adult; I11.9 Hypertensive heart disease without heart failure; K59.00 Constipation, unspecified; M19.90 Unspecified osteoarthritis, unspecified site; Z79.82 Long term (current) use of aspirin; Z79.899 Other long term (current) drug therapy; Z86.73 Personal history of transient ischemic attack (TIA), and cerebral infarction without residual deficits; Z87.891 Personal history of nicotine dependence; Z90.710 Acquired absence of both cervix and uterus; Z98.1 Arthrodesis status
CPT/HCPCS: 36415; 70450; 70496; 70498; 70551; 70553; 71046; 80053; 80061; 81003; 83036; 83735; 84100; 84443; 84484; 85025; 85610; 85730; 87635; 93005; 93306; 99285